=== PATIENT | male | born 1970 | race Caucasian/White ===

== ENCOUNTER 2018-08-15 13:32 | Outpatient (CLI) | payer OTHER ==
[~2018-08-15] VITALS: Ht 198.1 cm; Wt 108.9 kg
[2018-08-15] MEDS ORDERED: PROTONIX40 MG ORAL (14:25)
--- NOTE | 2018-08-15 14:27 | GI Initial Consult Note ---
History of Present Illness General Date patient seen: Aug 15, 2018 Time patient seen: 14:22 Referring physician: IRAM Reason for Consultation: RECTAL BLEED Present Illness HPI 48 year old male patient presents today with main concern of severe rectal bleeding over the course of months. Patient states he believes is internal hemorrhoids. The patient is a homosexual, but denied the bleeding may of been the result from any sexual acts. States he had a colonoscopy performed over 15 years ago, found one benign polyp. In addition, the patient has complaints of severe GERD and abdominal bloating, currently on protonix 40mg daily which works out well from the patient. Denies any unintentional weight loss or changes in dietary habits. No signs of abuse or neglect. Patient is not fall risk. Home Meds Reported Medications Pantoprazole* (PROTONIX*) 40 Mg Tablet.dr, 40 MG ORAL DAILY, TAB 08/15/18 Allergies: Coded Allergies: No Known Allergies (Unverified , 08/15/18) Patient History History Provided By: Patient, Medical Record H Narrative GERD Depression IBS Hemorrhoids Past Surgical History: Nose Tonsillectomy Multiple knee / should surgery. Family History Narrative Family history of DM, heart disease, HTN Father had Lunch, throat CA Mother had CVA Social History: Reports: alcohol use, other - coffee rare occasions Review of Systems All Other Systems: negative except mentioned in HPI Physical Exam T 98.8 BP 135/78 P 80 96 RA HT 6'6 WT 240.8 Sp02 EP Interpretation: reviewed, normal General Appearance: well appearing, no apparent distress, alert Head: normocephalic EENT: PERRL/EOMI, normal ENT inspection Neck: supple Respiratory: normal breath sounds, no respiratory distress Cardiovascular: normal rate Gastrointestinal: normal inspection, non tender, soft, normal bowel sounds, non -distended Rectal: deferred Genitourinary: deferred Musculoskeletal: normal inspection, back normal Neurologic: normal inspection, alert, oriented x3, responsive Psychiatric: normal inspection, judgement/insight normal, memory normal Skin: normal inspection, normal color, no rash, warm/dry, palpation normal, well hydrated Lymphatic: normal inspection, no adenopathy GI: Plan Problems: (1) GERD (gastroesophageal reflux disease) (2) Depressed (3) IBS (irritable bowel syndrome) (4) Acute hemorrhoid (5) Colonoscopy planned (6) History of colon polyps Plan EGD/colonoscopy to be scheduled pending PA, will contact patient for follow up. - CLD & (Nulytely/Suprep/Movi-Prep) prep instructions given and acknowledged by patient. - NPO @ [place] day prior procedure explained. cont ppi Seen with Dr. Adorno. Thank you for this patient referral. The patient was seen and examined at bedside and all new and available data was reviewed in the patients chart. I agree with the above findings, impression and plan. (Patient seen earlier today. Signature stamp does not reflect patient encounter time.). - MD Ainsley RainesSt. Mary'S HospitalRaimundo POINTER MACHINE OPERATOR Aug 15, 2018 14:27
[2018-08-15 15:26] VITALS: BP 135/78
== END 2018-08-15 14:02 | disposition home or self-care (01) ==
LOC: PAN 13:32
DX: K64.9 Unspecified hemorrhoids (principal); K21.9 Gastro-esophageal reflux disease without esophagitis; K58.9 Irritable bowel syndrome, unspecified; Z86.010 Personal history of colon polyps; F32.9 Major depressive disorder, single episode, unspecified
CPT/HCPCS: 99201